=== PATIENT | female | born 1995 | race Caucasian/White ===

== ENCOUNTER 2019-03-01 16:33 | Inpatient (IN) ==
[2019-03-01] MEDS ORDERED: 0.9 % Sodium Chloride 1,000 ML IVC ONE ×3 (16:57→21:07)
[2019-03-01] MEDS ORDERED: *HR* Promethazine 25 MG/ML VIAL IVP ONE (17:07)
[2019-03-01] MEDS ORDERED: Ketorolac 15 MG/ML VIAL IVP ONE (17:19)
--- NOTE | 2019-03-01 17:20 | Emergency Department Note ---
Disposition Clinical Impression: Pyelonephritis, Dehydration Nausea and vomiting Qualifiers: Vomiting type: unspecified Vomiting Intractability: unspecified Qualified Code(s): R11.2 - Nausea with vomiting, unspecified Sepsis Qualifiers: Sepsis type: sepsis due to unspecified organism Qualified Code(s): A41.9 - Sepsis, unspecified organism Disposition: Admitted As Inpatient Condition: Fair Referrals: Imelda Mathis [employer] [Primary Care Provider] - Forms: ED Satisfaction Letter, Work/School Release Time of Disposition: 19:34 General Adult HPI - General Chief complaint: ED Abdominal Pain Stated complaint: Fever; RLQ pain Time Seen by Provider: 03/01/19 16:55 Nursing Notes Reviewed: Yes Vital Signs Reviewed: Yes - History of Present Illness Pain Scale: 4 - Related Data Home Medications Medication Instructions Recorded Confirmed Bupropion HCl [Wellbutrin Xl] 300 mg PO DAILY 03/01/19 03/01/19 Buspirone HCl [Buspar] 10 mg PO HS 03/01/19 03/01/19 Ibuprofen [Ibu] 800 mg PO PRN PRN 03/01/19 03/01/19 Medicinal Marijuana PRN 03/01/19 Norgestimate-Ethinyl Estradiol 1 each PO DAILY 03/01/19 03/01/19 [Travis-Linyah 28 Tablet] Omeprazole [PriLOSEC] 20 mg PO DAILY 03/01/19 03/01/19 Propranolol [Inderal] 10 mg PO BID PRN 03/01/19 03/01/19 Spironolactone 50 mg PO DAILY 03/01/19 03/01/19 Allergies Allergy/AdvReac Type Severity Reaction Status Date / Time Amoxicillin Allergy See Verified 03/01/19 16:37 Comments Dilating eye drops AdvReac Hives Uncoded 03/01/19 16:37 Course Vital Signs Temperature 98.1 F 03/01/19 16:36 Pulse Rate 117 03/01/19 16:36 Respiratory Rate 14 03/01/19 16:36 Blood Pressure 119/82 03/01/19 16:36 O2 Sat by Pulse Oximetry 100 03/01/19 16:36 Temperature 99.3 F 03/01/19 19:00 Pulse Rate 111 03/01/19 19:00 Respiratory Rate 18 03/01/19 19:00 Blood Pressure 99/73 03/01/19 19:00 O2 Sat by Pulse Oximetry 99 03/01/19 19:00 Oxygen Delivery Oxygen Delivery Room Air Medical Decision Making - MDM Narrative Medical decision making narrative: Abdomen/Pelvis CT 03/01/19 17:18 IMPRESSION: Mild right perinephric soft tissue stranding. No renal or ureteral calculi. Findings may be related to pyelonephritis in the correct clinical setting. Recommend correlation with urinalysis. D/ / 03/01/2019 18:10:45 Erica Clodu MD / yary Interpreting Provider: Erica Cloud MD [id number] hrs.: Patient does meet SIRS criteria with her UTI she may be septic. Were in a go ahead and start her on IV antibiotics second liter of fluids at a lactate and blood cultures and admission. She is in agreement with this plan. - Lab Data Result diagrams: 03/01/19 17:30 03/01/19 17:30 Lab Results 03/01/19 03/01/19 03/01/19 Range/Units 17:15 17:15 17:30 WBC 15.6 H (4.3-11.1) K/mcL RBC 4.72 (3.82-4.97) M/mcL Hgb 12.6 (11.5-15.4) g/dL Hct 39.1 (35.3-44.9) % MCV 82.8 L (83.0-100.0) fL MCH 26.7 L (28.0-33.3) pg MCHC 32.2 (31.6-35.5) g/dL RDW 13.5 (11.5-14.5) % Plt Count 318 (140-400) K/mcL MPV 10.6 (9.4-12.4) fL Immature Gran % 0.7 (0-4) % Seg Neutrophils % 79.9 % Lymphocytes % 8.4 % Monocytes % 10.6 % Eosinophils % 0.1 % Basophils % 0.3 % Neutrophils # 12.5 H (1.6-8.9) K/mcL Lymphocytes # 1.3 (0.6-4.6) K/mcL Monocytes # 1.7 H (0.0-1.3) K/mcL Eosinophils # 0.0 (0.0-0.6) K/mcL Basophils # 0.0 (0.0-0.2) K/mcL Sodium (136-145) mEq/L Potassium (3.5-5.1) mEq/L Chloride (98-107) mEq/L Carbon Dioxide (23-29) mEq/L BUN (6-20) mg/dL Creatinine (0.60-1.20) mg/dL Est GFR ( Amer) (> 60) Est GFR (Non-Af Amer) (> 60) BUN/Creatinine Ratio (6-26) Glucose (70-105) mg/dL Calculated Osmolality (280-300) Calcium (8.6-10.3) mg/dL Total Bilirubin (0.3-1.0) mg/dL Direct Bilirubin (0.0-0.2) mg/dL Indirect Bilirubin (0.0-1.2) mg/dL AST (13-39) Units/L ALT (7-52) Units/L Alkaline Phosphatase (34-104) Units/L Serum Total Protein (6.4-8.9) g/dL Albumin (3.5-5.7) g/dL Globulin (2.4-3.5) g/dL Albumin/Globulin Ratio (1.1-2.2) Lipase (11-82) Units/L Urine Color Yellow (Yellow) Urine Clarity Clear (Clear) Urine pH 6.0 (5.0-8.0) pH Units Ur Specific [place] > 1.030 H (1.010-1.025) Urine Protein 30 H (Neg-Trace) mg/dL Urine Glucose (UA) Normal (Normal) mg/dL Urine Ketones >=160 H (Negative) mg/dL Urine Blood Negative (Negative) Urine Nitrite Negative (Negative) Urine Bilirubin Small H (Negative) Urine Urobilinogen Normal (Normal) mg/dL Ur Leukocyte Esterase Small H (Negative) Urine Microscopic RBC 0-3 (0-3) per hpf Urine Microscopic WBC 5-15 H (0-3) per hpf Ur Squamous Epith Cells Few (None-Few) per lpf Urine Bacteria Moderate H (None-Few) per hpf Ur Culture Indicated? YES A (NO) Urine Test Negative (Negative) 03/01/19 Range/Units 17:30 WBC (4.3-11.1) K/mcL RBC (3.82-4.97) M/mcL Hgb (11.5-15.4) g/dL Hct (35.3-44.9) % MCV (83.0-100.0) fL MCH (28.0-33.3) pg MCHC (31.6-35.5) g/dL RDW (11.5-14.5) % Plt Count (140-400) K/mcL MPV (9.4-12.4) fL Immature Gran % (0-4) % Seg Neutrophils % % Lymphocytes % % Monocytes % % Eosinophils % % Basophils % % Neutrophils # (1.6-8.9) K/mcL Lymphocytes # (0.6-4.6) K/mcL Monocytes # (0.0-1.3) K/mcL Eosinophils # (0.0-0.6) K/mcL Basophils # (0.0-0.2) K/mcL Sodium 137 (136-145) mEq/L Potassium 3.5 (3.5-5.1) mEq/L Chloride 103 (98-107) mEq/L Carbon Dioxide 23 (23-29) mEq/L BUN 9 (6-20) mg/dL Creatinine 0.75 (0.60-1.20) mg/dL Est GFR ( Amer) > 60 (> 60) Est GFR (Non-Af Amer) > 60 (> 60) BUN/Creatinine Ratio 12 (6-26) Glucose 96 (70-105) mg/dL Calculated Osmolality 283 (280-300) Calcium 9.4 (8.6-10.3) mg/dL Total Bilirubin 0.4 (0.3-1.0) mg/dL Direct Bilirubin 0.1 (0.0-0.2) mg/dL Indirect Bilirubin 0.3 (0.0-1.2) mg/dL AST 9 L (13-39) Units/L ALT 8 (7-52) Units/L Alkaline Phosphatase 80 (34-104) Units/L Serum Total Protein 7.6 (6.4-8.9) g/dL Albumin 4.2 (3.5-5.7) g/dL Globulin 3.4 (2.4-3.5) g/dL Albumin/Globulin Ratio 1.2 (1.1-2.2) Lipase 10 L (11-82) Units/L Urine Color (Yellow) Urine Clarity (Clear) Urine pH (5.0-8.0) pH Units Ur Specific [place] (1.010-1.025) Urine Protein (Neg-Trace) mg/dL Urine Glucose (UA) (Normal) mg/dL Urine Ketones (Negative) mg/dL Urine Blood (Negative) Urine Nitrite (Negative) Urine Bilirubin (Negative) Urine Urobilinogen (Normal) mg/dL Ur Leukocyte Esterase (Negative) Urine Microscopic RBC (0-3) per hpf Urine Microscopic WBC (0-3) per hpf Ur Squamous Epith Cells (None-Few) per lpf Urine Bacteria (None-Few) per hpf Ur Culture Indicated? (NO) Urine Test (Negative) Attestation Statement - Attestation Attestation: This documentation is done with the assistance of Dragon dictation. Despite efforts made to ensure accuracy, there may be inaccuracies in ocular care technician or spelling and typographical errors. I examined this patient and my medical decision-making was reviewed with the Resident Physician. I agree with the documented findings, disposition and treatment plan as described except to the extent set forth below. Patient seen and evaluated by Dr. Jae ochoa myself, I agree with her evaluation and management plan, I supervised the care the patient's stay. Patient presents today with abdominal flank pain. Subjective fevers and none here. She has been taken acetaminophen and ibuprofen help with that. Had a recent UTI was started on Bactrim but has not been out keep her medications down. We will see if we can get her feeling better start some fluids and something for nausea and pain. Lab work check a urinalysis and reassess. She also get a CT the abdomen to rule out stone or intra-abdominal pathology.
--- NOTE | 2019-03-01 17:33 | Emergency Department Note ---
Disposition Clinical Impression: Pyelonephritis, Dehydration Nausea and vomiting Qualifiers: Vomiting type: unspecified Vomiting Intractability: unspecified Qualified Code(s): R11.2 - Nausea with vomiting, unspecified Sepsis Qualifiers: Sepsis type: sepsis due to unspecified organism Qualified Code(s): A41.9 - Sepsis, unspecified organism Disposition: Admitted As Inpatient Condition: Fair Referrals: Imelda Mathis [employer] [Primary Care Provider] - Forms: ED Satisfaction Letter, Work/School Release Time of Disposition: 18:30 Abdominal Pain HPI - General Chief Complaint: ED Abdominal Pain Stated Complaint: Fever; RLQ pain Time Seen by Provider: 03/01/19 16:55 Source: patient Mode of arrival: private vehicle Limitations: no limitations Nursing Notes Reviewed: Yes Vital Signs Reviewed: Yes - History of Present Illness HPI Narrative: Patient is a 23-year-old female with no past medical history presenting with a chief complaint of right flank pain and fevers. The patient states for the past 4 days, she complains of constant right flank pain and fevers greater than 103 degrees Fahrenheit taken by a forehead thermometer. She has been taking ib uprofen and Tylenol without much improvement. She also complains of decreased urination and dark urine. She followed up at [place] urgent care yesterday. She was diagnosed with a urinary tract infection. She states Toradol helped with her pain. She was discharged home with Bactrim. For the past 3-4 days she also complains of nausea and vomiting and states she is unable to keep anything down. She states Zofran does not help. She states today she has continued pain. She last took Tylenol around noon. She was afebrile and she presented here. Patient does state she has a medical marijuana prescription for borderline personality disorder and anxiety/PTSD. Pain Scale: 4 - Related Data Allergies Allergy/AdvReac Type Severity Reaction Status Date / Time Amoxicillin Allergy See Verified 03/01/19 16:37 Comments Dilating eye drops AdvReac Hives Uncoded 03/01/19 16:37 All systems ED: reviewed and negative except as stated. Review of Systems: As Per HPI Constitutional: Reports: fever, chills Cardiovascular: Denies: chest pain, palpitations Respiratory: Denies: dyspnea Gastrointestinal: Reports: abdominal pain, nausea, vomiting. Denies: diarrhea, hematemesis, hematochezia Genitourinary: Reports: dysuria. Denies: hematuria Neurological: Denies: headache, weakness Abdominal Pain PMH - Past Medical History Medical history: Reports: non-contributory Female Surgical History: Reports: Adenoidectomy, Tonsillectomy Psychiatric history: Reports: anxiety, depression, PTSD, other - Social History Smoking status: Never smoker Alcohol use: Reports: occasionally Drug use: Reports: none Physical Exam - General Limitations: no limitations General appearance: alert, in no apparent distress - Head Head exam: atraumatic, normocephalic - Eye Eye exam: Present: normal appearance, EOMI - ENT ENT exam: normal exam, normal oropharynx - Neck Neck exam: Present: normal inspection, trachea midline - Chest Chest inspection: Present: normal inspection, symmetric chest wall rise - Respiratory Respiratory exam: Present: normal lung sounds bilaterally. Absent: respiratory distress, wheezes - Cardiovascular Cardiovascular exam: Present: normal rhythm, tachycardia, normal heart sounds - Abdominal Exam Abdominal exam: Present: soft, other (right lower quadrant and right flank tenderness to palpation without guarding or rebound) - Extremities Exam Extremities exam: Present: normal capillary refill. Absent: pedal edema - Back Exam Back exam: Present: CVA tenderness (R) - Neurological Exam Neurological exam: Present: alert, oriented X3 - Psychiatric Psychiatric exam: Present: normal affect, normal mood - Skin Skin exam: Present: warm, dry. Absent: diaphoresis, pallor Course Vital Signs Temperature 98.1 F 03/01/19 16:36 Pulse Rate 117 03/01/19 16:36 Respiratory Rate 14 03/01/19 16:36 Blood Pressure 119/82 03/01/19 16:36 O2 Sat by Pulse Oximetry 100 03/01/19 16:36 Temperature 98.1 F 03/01/19 17:17 Pulse Rate 117 03/01/19 17:17 Respiratory Rate 14 03/01/19 17:17 Blood Pressure 119/82 03/01/19 17:17 O2 Sat by Pulse Oximetry 100 03/01/19 17:17 Oxygen Delivery Oxygen Delivery Room Air Abdominal Pain - MDM Narrative Medical decision making narrative: Patient has sinus tachycardia, is afebrile. She was recently diagnosed with ur inary tract infection and started on bactrim since yesterday. There is a concern for pyelonephritis versus septic stone. We will obtain CBC, BMP, hepatic panel, lipase. We will repeat urinalysis. We will obtain CT abdomen and pelvis without contrast to further evaluate. We will give her Toradol and Phenergan for pain and nausea. 1L IVFs has been ordered. 18:20 CT abdomen and pelvis is concerning for pyelonephritis. We will give her a dose of IV Rocephin and second liter of normal saline. She has leukocytosis and remains tachycardic. We will start second liter of IV fluids. She will receive IV Rocephin. Lactate and blood cultures will be obtained. She has sepsis secondary to pyelonephritis. She will be admitted for further management. - Medical Records Medical records reviewed: Yes I reviewed the patient's medical records. - Lab Data Lab results reviewed: Yes I reviewed the patient's lab results. Result diagrams: 03/01/19 17:30 03/01/19 17:30 Lab Results 03/01/19 03/01/19 03/01/19 Range/Units 17:15 17:15 17:30 WBC 15.6 H (4.3-11.1) K/mcL RBC 4.72 (3.82-4.97) M/mcL Hgb 12.6 (11.5-15.4) g/dL Hct 39.1 (35.3-44.9) % MCV 82.8 L (83.0-100.0) fL MCH 26.7 L (28.0-33.3) pg MCHC 32.2 (31.6-35.5) g/dL RDW 13.5 (11.5-14.5) % Plt Count 318 (140-400) K/mcL MPV 10.6 (9.4-12.4) fL Immature Gran % 0.7 (0-4) % Seg Neutrophils % 79.9 % Lymphocytes % 8.4 % Monocytes % 10.6 % Eosinophils % 0.1 % Basophils % 0.3 % Neutrophils # 12.5 H (1.6-8.9) K/mcL Lymphocytes # 1.3 (0.6-4.6) K/mcL Monocytes # 1.7 H (0.0-1.3) K/mcL Eosinophils # 0.0 (0.0-0.6) K/mcL Basophils # 0.0 (0.0-0.2) K/mcL Sodium (136-145) mEq/L Potassium (3.5-5.1) mEq/L Chloride (98-107) mEq/L Carbon Dioxide (23-29) mEq/L BUN (6-20) mg/dL Creatinine (0.60-1.20) mg/dL Est GFR ( Amer) (> 60) Est GFR (Non-Af Amer) (> 60) BUN/Creatinine Ratio (6-26) Glucose (70-105) mg/dL Calculated Osmolality (280-300) Calcium (8.6-10.3) mg/dL Total Bilirubin (0.3-1.0) mg/dL Direct Bilirubin (0.0-0.2) mg/dL Indirect Bilirubin (0.0-1.2) mg/dL AST (13-39) Units/L ALT (7-52) Units/L Alkaline Phosphatase (34-104) Units/L Serum Total Protein (6.4-8.9) g/dL Albumin (3.5-5.7) g/dL Globulin (2.4-3.5) g/dL Albumin/Globulin Ratio (1.1-2.2) Lipase (11-82) Units/L Urine Color Yellow (Yellow) Urine Clarity Clear (Clear) Urine pH 6.0 (5.0-8.0) pH Units Ur Specific [place] > 1.030 H (1.010-1.025) Urine Protein 30 H (Neg-Trace) mg/dL Urine Glucose (UA) Normal (Normal) mg/dL Urine Ketones >=160 H (Negative) mg/dL Urine Blood Negative (Negative) Urine Nitrite Negative (Negative) Urine Bilirubin Small H (Negative) Urine Urobilinogen Normal (Normal) mg/dL Ur Leukocyte Esterase Small H (Negative) Urine Microscopic RBC 0-3 (0-3) per hpf Urine Microscopic WBC 5-15 H (0-3) per hpf Ur Squamous Epith Cells Few (None-Few) per lpf Urine Bacteria Moderate H (None-Few) per hpf Ur Culture Indicated? YES A (NO) Urine Test Negative (Negative) 03/01/19 Range/Units 17:30 WBC (4.3-11.1) K/mcL RBC (3.82-4.97) M/mcL Hgb (11.5-15.4) g/dL Hct (35.3-44.9) % MCV (83.0-100.0) fL MCH (28.0-33.3) pg MCHC (31.6-35.5) g/dL RDW (11.5-14.5) % Plt Count (140-400) K/mcL MPV (9.4-12.4) fL Immature Gran % (0-4) % Seg Neutrophils % % Lymphocytes % % Monocytes % % Eosinophils % % Basophils % % Neutrophils # (1.6-8.9) K/mcL Lymphocytes # (0.6-4.6) K/mcL Monocytes # (0.0-1.3) K/mcL Eosinophils # (0.0-0.6) K/mcL Basophils # (0.0-0.2) K/mcL Sodium 137 (136-145) mEq/L Potassium 3.5 (3.5-5.1) mEq/L Chloride 103 (98-107) mEq/L Carbon Dioxide 23 (23-29) mEq/L BUN 9 (6-20) mg/dL Creatinine 0.75 (0.60-1.20) mg/dL Est GFR ( Amer) > 60 (> 60) Est GFR (Non-Af Amer) > 60 (> 60) BUN/Creatinine Ratio 12 (6-26) Glucose 96 (70-105) mg/dL Calculated Osmolality 283 (280-300) Calcium 9.4 (8.6-10.3) mg/dL Total Bilirubin 0.4 (0.3-1.0) mg/dL Direct Bilirubin 0.1 (0.0-0.2) mg/dL Indirect Bilirubin 0.3 (0.0-1.2) mg/dL AST 9 L (13-39) Units/L ALT 8 (7-52) Units/L Alkaline Phosphatase 80 (34-104) Units/L Serum Total Protein 7.6 (6.4-8.9) g/dL Albumin 4.2 (3.5-5.7) g/dL Globulin 3.4 (2.4-3.5) g/dL Albumin/Globulin Ratio 1.2 (1.1-2.2) Lipase 10 L (11-82) Units/L Urine Color (Yellow) Urine Clarity (Clear) Urine pH (5.0-8.0) pH Units Ur Specific [place] (1.010-1.025) Urine Protein (Neg-Trace) mg/dL Urine Glucose (UA) (Normal) mg/dL Urine Ketones (Negative) mg/dL Urine Blood (Negative) Urine Nitrite (Negative) Urine Bilirubin (Negative) Urine Urobilinogen (Normal) mg/dL Ur Leukocyte Esterase (Negative) Urine Microscopic RBC (0-3) per hpf Urine Microscopic WBC (0-3) per hpf Ur Squamous Epith Cells (None-Few) per lpf Urine Bacteria (None-Few) per hpf Ur Culture Indicated? (NO) Urine Test (Negative) - Radiology Data Radiology results reviewed: Yes I reviewed the patient's radiology results. Abdomen/Pelvis CT 03/01/19 17:18 IMPRESSION: Mild right perinephric soft tissue stranding. No renal or ureteral calculi. Findings may be related to pyelonephritis in the correct clinical setting. Recommend correlation with urinalysis. D/ / 03/01/2019 18:10:45 Erica Cloud MD / yary Interpreting Provider: Erica Cloud MD
[2019-03-01 18:01] LABS: Color,Urine Yellow (Yellow)
[2019-03-01 18:02] LABS: Bilirubin,Urine Small (Negative); Blood,Urine Negative (Negative); Clarity,Urine Clear (Clear); Glucose,Urine (UA) Normal (Normal); Ketones,Urine >=160 mg/dL (Negative); Leukocyte Esterase,Urine Small (Negative); Nitrite,Urine Negative (Negative); Protein,Urine 30 mg/dL (Neg-Trace); Specific Gravity,Urine > 1.030 (1.010-1.025); Urobilinogen,Urine Normal (Normal)
[2019-03-01 18:03] LABS: Squamous Epithelial Cell,Urine Few per lpf (None-Few)
[2019-03-01 18:04] LABS: Bacteria,Urine Moderate per hpf (None-Few); RBC,Urine 0-3 per hpf (0-3)
[2019-03-01 18:14] LABS: Alanine Aminotransferase 8 Units/L (7-52); Albumin 4.2 g/dL (3.5-5.7); Albumin/Globulin Ratio 1.2 (1.1-2.2); Alkaline Phosphatase 80 Units/L (34-104); Aspartate Amino Transferase 9 Units/L (13-39); Bilirubin,Direct 0.1 mg/dL (0.0-0.2); Bilirubin,Indirect 0.3 mg/dL (0.0-1.2); Bilirubin,Total 0.4 mg/dL (0.3-1.0); Globulin 3.4 g/dL (2.4-3.5); Lipase 10 Units/L (11-82); Total Protein 7.6 g/dL (6.4-8.9)
[2019-03-01 18:21] LABS: Basophils % 0.3 %; Eosinophils % 0.1 %; Hematocrit 39.1 % (35.3-44.9); Hemoglobin 12.6 g/dL (11.5-15.4); Immature Granulocytes % 0.7 % (0-4); Lymphocytes # 1.3 K/mcL (0.6-4.6); Lymphocytes % 8.4 %; Mean Corpuscular HGB Conc 32.2 g/dL (31.6-35.5); Mean Corpuscular Hemoglobin 26.7 pg (28.0-33.3); Mean Corpuscular Volume 82.8 fL (83.0-100.0); Mean Platelet Volume 10.6 fL (9.4-12.4); Monocytes # 1.7 K/mcL (0.0-1.3); Monocytes % 10.6 %; Neutrophils # 12.5 K/mcL (1.6-8.9); Platelet Count 318 K/mcL (140-400); Red Blood Count 4.72 M/mcL (3.82-4.97); Red Cell Distribution Width 13.5 % (11.5-14.5); Segmented Neutrophils % 79.9 %
[2019-03-01] MEDS ORDERED: cefTRIAXone 1,000 MG in Water for inj. (sterile) 20 ML 10 ML IVP ONE (18:23)
[2019-03-01 18:30] LABS: BUN/Creatinine Ratio 12 (6-26); Blood Urea Nitrogen 9 mg/dL (6-20); Calcium 9.4 mg/dL (8.6-10.3); Carbon Dioxide 23 mEq/L (23-29); Chloride 103 mEq/L (98-107); Glucose 96 mg/dL (70-105); Osmolality,Calculated 283 (280-300); Potassium 3.5 mEq/L (3.5-5.1); Sodium 137 mEq/L (136-145); eGFR For Non-African Americans > 60 (> 60)
[2019-03-01] MEDS ORDERED: Acetaminophen 325 MG TABLET PO ONE (21:06)
--- NOTE | 2019-03-01 21:11 | Internal Med History&Physical ---
<Aguila Chung S - Last Filed: 03/01/19 22:32> Date of Encounter: 03/01/19 Time of Encounter: 21:32 Internal Medicine - H&P: HPI Chief complaint: uti Admitted From: Home Plans for Post Hospital Care: Home History of present illness: Ms. Mcginnis is a 23 year old female with a PMH of PTSD, borderline personality d/o, anxiety and depression. She is coming in to the ER from home with the chief complaint of persistent UTI. Two weeks ago she was given bactrim for a UTI. She continued to have nausea, vomiting, and fevers with a t max of 103 degrees. She went to another walk in clinic and was given macrobid and zofran. She then became unable to keep anything down and threw up no matter what she ate or dran k. She has some abdominal pain in the LLQ/RLQ but denies any pain with urination. She does have increased frequency of urination. Denies hematuria. She also c/o dark urine that smells real bad. In the ER she was found to have CT evidence of pyelonephritis. She was given IV rocephin. The pt met criteria for sepsis and was given appropriate fluid resuscitation. She had urine and blood cx ordered. She will be admitted for further management. Past Med Surg Social Fam HX - Past Medical History Medical history: non-contributory Psychiatric history: anxiety, depression, PTSD, other - Social History Smoking Status: Never smoker Smokeless Tobacco Status: No Alcohol use: occasionally Drug use: none - Family History Maternal Grandmother Adopted: No Race: Hx Family Endocrine Disorder: Yes (T2DM) Father Adopted: No Race: Hx Family Endocrine Disorder: Yes Internal Medicine - H&P: Meds Bupropion HCl [Wellbutrin Xl] 300 mg PO DAILY 03/01/19 [History] Buspirone HCl [Buspar] 10 mg PO HS 03/01/19 [History] Ibuprofen [Ibu] 800 mg PO PRN PRN 03/01/19 [History] Medicinal Marijuana PRN 03/01/19 [History] Norgestimate-Ethinyl Estradiol [[place] 28 Tablet] 1 each PO DAILY 03/01/19 [History] Omeprazole [PriLOSEC] 20 mg PO DAILY 03/01/19 [History] Propranolol [Inderal] 10 mg PO BID PRN 03/01/19 [History] Spironolactone 50 mg PO DAILY 03/01/19 [History] Allergy/AdvReac Type Severity Reaction Status Date / Time Amoxicillin Allergy See Verified 03/01/19 16:37 Comments Dilating eye drops AdvReac Hives Uncoded 03/01/19 16:37 All Systems PM: A 10-system review of systems was performed and is negative for pertinent findings except as documented above in the HPI. - Constitutional Constitutional: anorexia, chills, excessive sweating, fever(s), malaise - EENT Eyes: no blurry vision, no change in vision Ears: no tinnitus Nose, mouth and throat: no bleeding gums, no epistaxis - Cardiovascular Cardiovascular ROS IM: no chest pain, no dyspnea, no dyspnea on exertion - Respiratory Respiratory: no cough, no dyspnea, no dyspnea on exertion - Gastrointestinal Gastrointestinal: abdominal pain, nausea, vomiting, no diarrhea - Genitourinary Genitourinary: flank pain, urinary frequency, urinary urgency, no dysuria, no hematuria - Musculoskeletal Musculoskeletal ROS IM: back pain, no stiffness, no tingling - Integumentary Integumentary IM: no rash, no skin ulcer, no unusual bruising - Neurological Neurological ROS: weakness, no dizziness, no numbness, no tremor(s) - Psychiatric Psychiatric: anxiety, depression, mood swings - Hematologic/Lymphatic Hematologic/Lymphatic: no easy bleeding, no easy bruising - Constitutional Vitals: Temp Pulse Resp BP Pulse Ox 103.2 F H 124 18 117/82 97 03/01/19 21:05 03/01/19 21:05 03/01/19 21:05 03/01/19 21:05 03/01/19 21:05 General appearance: Present: cooperative, mild distress, A&O X 3, obese, answers questions appropriately Exam: general - mildly anxious, obese female laying in bed, cooperative, aox3 heent - ncat, dry MM, no scleral icterus neck - no jvd, supple cardio - tacycardia, s1s2, cta no mrg lungs - ctab no wheeze/rhonchi/rales, not in respiraory distress abd - mild TTP in LLQ/RLQ, no rebound, involtuntary guarding present, no peritoneal signs back - (+) CVA tenderness right side extremities - moves all extremities equally and without difficulty, no pitting edema bilaterally skin - warm, dry, intact neuro - no fnd, sensation and strength intact psych - mildly anxious Internal Med - H&P Results - Labs CBC & Chem 7: 03/01/19 17:30 03/01/19 17:30 Labs: Short CBC 03/01/19 Range/Units 17:30 WBC 15.6 H (4.3-11.1) K/mcL Hgb 12.6 (11.5-15.4) g/dL Hct 39.1 (35.3-44.9) % Plt Count 318 (140-400) K/mcL Neutrophils # 12.5 H (1.6-8.9) K/mcL BMP 03/01/19 17:30 Sodium 137 Potassium 3.5 Chloride 103 Carbon Dioxide 23 BUN 9 Creatinine 0.75 Glucose 96 Calcium 9.4 Liver Function 03/01/19 Range/Units 17:30 Total Bilirubin 0.4 (0.3-1.0) mg/dL Direct Bilirubin 0.1 (0.0-0.2) mg/dL AST 9 L (13-39) Units/L ALT 8 (7-52) Units/L Alkaline Phosphatase 80 (34-104) Units/L Albumin 4.2 (3.5-5.7) g/dL Urine 03/01/19 Range/Units 17:15 Urine Color Yellow (Yellow) Urine Clarity Clear (Clear) Urine pH 6.0 (5.0-8.0) pH Units Ur Specific [place] > 1.030 H (1.010-1.025) Urine Protein 30 H (Neg-Trace) mg/dL Urine Glucose (UA) Normal (Normal) mg/dL - Impressions ITS Impressions Abdomen/Pelvis CT 03/01/19 17:18 IMPRESSION: Mild right perinephric soft tissue stranding. No renal or ureteral calculi. Findings may be related to pyelonephritis in the correct clinical setting. Recommend correlation with urinalysis. D/ / 03/01/2019 18:10:45 Erica Cloud MD / yary Interpreting Provider: Erica Cloud MD - Assessment and Plan (1) Sepsis Current Visit: Yes Status: Acute Assessment and plan: Sepsis likely secondary to acute pyelonephritis - pt failed outpatient tx with bactrim (2 wks ago) followed by bethanybid - has hx of recurrent UTI Meets SIRS criteria for HR, WBC, temperature; source of infxn pyelonephritis UA (+) for leukocyte esterase and WBC, negative for nitrites CT abd/pelvis from admission: - Mild right perinephric soft tissue stranding. No renal or ureteral calculi. - Findings may be related to pyelonephritis in the correct clinical setting. Plan: - blood cx pending - urine cx pending - continue MIVF after fluid boluses completed at 125cc/hr 0.9% NS - continue rocephin day 1 - pain control with ketorolac prn q6hr - acetaminophen q6hr prn fever - phenergan prn nausea - FEN: regular diet, advance diet as tolerated - DVT prophylaxis: sq heparin - dispo: inpatient IV abx Qualifiers: Sepsis type: sepsis due to unspecified organism Qualified Code(s): A41.9 - Sepsis, unspecified organism (2) DVT prophylaxis Current Visit: Yes Status: Acute Assessment and plan: sq heparin (3) Obesity (BMI 30.0-34.9) Current Visit: No Status: Chronic Assessment and plan: bmi 34.7, chronic. counseled. (4) GERD (gastroesophageal reflux disease) Current Visit: No Status: Chronic Assessment and plan: con't home rx when reconciled. chronic. Qualifiers: Esophagitis presence: without esophagitis Qualified Code(s): K21.9 - Gastro-esophageal reflux disease without esophagitis (5) Pyelonephritis Current Visit: Yes Status: Acute Assessment and plan: See plan as above for sepsis. (6) Nausea and vomiting Current Visit: Yes Status: Acute Assessment and plan: phenergan prn Qualifiers: Vomiting type: unspecified Vomiting Intractability: unspecified Qualified Code(s): R11.2 - Nausea with vomiting, unspecified (7) Dehydration Current Visit: Yes Status: Acute Assessment and plan: Secondary to vomiting and poor PO intake. Continue IVF hydration as above. (8) Leukocytosis Current Visit: Yes Status: Acute Assessment and plan: White count 15.4 on admission, likely secondary to pyelonephritis. Qualifiers: Leukocytosis type: unspecified Qualified Code(s): D72.829 - Elevated white blood cell count, unspecified (9) Tachycardia Current Visit: Yes Status: Acute Assessment and plan: In the setting of sepsis, likely secondary to infxn. Will continue to monitor. (10) Mood disorder Current Visit: No Status: Chronic Assessment and plan: Pt reports anxiety, depression, PTSD and borderine personality disorder. Will continue home rx when reconciled. - Time Spent With Patient Total time spent is greater than 50% in coordination of care (as documented) at patient's floor/unit and/or counseling patient: 25 - 35 minutes <Abelino Dinh - Last Filed: 03/02/19 08:15> Date of Encounter: 03/02/19 Internal Medicine - H&P: HPI History of present illness: Ms. Mcginnis is a 23 year old female All Systems PM: A 10-system review of systems was performed and is negative for pertinent findings except as documented above in the HPI. - Constitutional Vitals: Temp Pulse Resp BP Pulse Ox 98.0 F 96 17 93/67 98 03/02/19 04:23 03/02/19 04:23 03/02/19 04:23 03/02/19 04:23 03/02/19 04:23 Internal Med - H&P Results - Labs CBC & Chem 7: 03/01/19 17:30 03/01/19 17:30 Labs: Short CBC 03/01/19 Range/Units 17:30 WBC 15.6 H (4.3-11.1) K/mcL Hgb 12.6 (11.5-15.4) g/dL Hct 39.1 (35.3-44.9) % Plt Count 318 (140-400) K/mcL Neutrophils # 12.5 H (1.6-8.9) K/mcL BMP 03/01/19 17:30 Sodium 137 Potassium 3.5 Chloride 103 Carbon Dioxide 23 BUN 9 Creatinine 0.75 Glucose 96 Calcium 9.4 Liver Function 03/01/19 Range/Units 17:30 Total Bilirubin 0.4 (0.3-1.0) mg/dL Direct Bilirubin 0.1 (0.0-0.2) mg/dL AST 9 L (13-39) Units/L ALT 8 (7-52) Units/L Alkaline Phosphatase 80 (34-104) Units/L Albumin 4.2 (3.5-5.7) g/dL Urine 03/01/19 Range/Units 17:15 Urine Color Yellow (Yellow) Urine Clarity Clear (Clear) Urine pH 6.0 (5.0-8.0) pH Units Ur Specific [place] > 1.030 H (1.010-1.025) Urine Protein 30 H (Neg-Trace) mg/dL Urine Glucose (UA) Normal (Normal) mg/dL - Impressions ITS Impressions Abdomen/Pelvis CT 03/01/19 17:18 IMPRESSION: Mild right perinephric soft tissue stranding. No renal or ureteral calculi. Findings may be related to pyelonephritis in the correct clinical setting. Recommend correlation with urinalysis. D/ / 03/01/2019 18:10:45 Erica Cloud MD / yary Interpreting Provider: Erica Cloud MD - Assessment and Plan (1) Pyelonephritis Current Visit: Yes Status: Acute (2) Nausea and vomiting Current Visit: Yes Status: Acute Qualifiers: Vomiting type: unspecified Vomiting Intractability: unspecified Qualified Code(s): R11.2 - Nausea with vomiting, unspecified (3) Dehydration Current Visit: Yes Status: Acute (4) Sepsis Current Visit: Yes Status: Acute Qualifiers: Sepsis type: sepsis due to unspecified organism Qualified Code(s): A41.9 - Sepsis, unspecified organism (5) DVT prophylaxis Current Visit: Yes Status: Acute (6) Obesity (BMI 30.0-34.9) Current Visit: No Status: Chronic (7) GERD (gastroesophageal reflux disease) Current Visit: No Status: Chronic Qualifiers: Esophagitis presence: without esophagitis Qualified Code(s): K21.9 - Eriberto ro-esophageal reflux disease without esophagitis (8) Leukocytosis Current Visit: Yes Status: Acute Qualifiers: Leukocytosis type: unspecified Qualified Code(s): D72.829 - Elevated white blood cell count, unspecified (9) Tachycardia Current Visit: Yes Status: Acute (10) Mood disorder Current Visit: No Status: Chronic - Time Spent With Patient Total time spent is greater than 50% in coordination of care (as documented) at patient's floor/unit and/or counseling patient: - Attending Attestation I saw and evaluated the patient. I reviewed the residents note, performed my o wn physical examination and agree with findings and plan as documented in the residents note. Patient seen and examined on 03/01/19. Patient presented with left sided abdominal pain, found to have pyelonephritis. Patient's pain has improved with IV fluids and pain medication. We will continue IV antibiotics and continue to monitor.
[2019-03-01] MEDS ORDERED: Naloxone 0.4 MG/ML INJ IVP PRN (21:30)
[2019-03-01] MEDS ORDERED: 0.9 % Sodium Chloride 1,000 ML IVC SCH (21:30)
[2019-03-01 21:54] LABS: Magnesium 2.1 mg/dL (1.6-2.6)
[2019-03-01] MEDS: Acetaminophen 325 MG TABLET PO PRN (23:30)
[2019-03-01] MEDS: 0.9 % Sodium Chloride 1,000 ML IVC SCH (23:30)
[2019-03-01] MEDS: *HR* Heparin 5,000 UNIT/ML VIAL SQ SCH (23:31)
[2019-03-02] MEDS: Ketorolac 30 MG/ML VIAL IVP PRN ×3 (03:55→18:37)
[2019-03-02] MEDS: *HR* Heparin 5,000 UNIT/ML VIAL SQ SCH ×2 (05:43→15:56)
[2019-03-02] MEDS ORDERED: cefTRIAXone 2,000 MG in Water for inj. (sterile) 20 ML 20 ML IVP SCH (08:00)
[2019-03-02] MEDS: cefTRIAXone 1,000 MG in Water for inj. (sterile) 20 ML 10 ML IVP SCH (08:25)
[2019-03-02] MEDS: Acetaminophen 325 MG TABLET PO PRN ×2 (08:26→16:01)
[2019-03-02] MEDS: *HR* Promethazine 25 MG/ML VIAL IVP PRN (08:26)
[2019-03-02] MEDS: 0.9 % Sodium Chloride 1,000 ML IVC SCH ×3 (08:30→16:06)
[2019-03-02 10:35] LABS: Mean Corpuscular HGB Conc 32.1 g/dL (31.6-35.5); Mean Corpuscular Hemoglobin 26.4 pg (28.0-33.3); Mean Corpuscular Volume 82.3 fL (83.0-100.0); Mean Platelet Volume 10.8 fL (9.4-12.4); Platelet Count 257 K/mcL (140-400); Red Blood Count 4.01 M/mcL (3.82-4.97); Red Cell Distribution Width 13.6 % (11.5-14.5)
[2019-03-02 10:40] LABS: BUN/Creatinine Ratio 10 (6-26); Blood Urea Nitrogen 6 mg/dL (6-20); Calcium 8.2 mg/dL (8.6-10.3); Carbon Dioxide 22 mEq/L (23-29); Chloride 108 mEq/L (98-107); Glucose 107 mg/dL (70-105); Osmolality,Calculated 282 (280-300); Potassium 3.4 mEq/L (3.5-5.1); Sodium 137 mEq/L (136-145); eGFR For Non-African Americans > 60 (> 60)
[2019-03-02 11:11] LABS: Hemoglobin 10.6 g/dL (11.5-15.4)
--- NOTE | 2019-03-02 15:27 | Internal Med Progress Note ---
Hospitalist Progress Note - Encounter Date of Encounter: 03/02/19 Time of Encounter: 15:25 - Subjective Interval History: Seen and examined at bedside. Patient is new to me, information obtained from chart review and patient report. Still says she does not feel 100% and not back to baseline but overall improved. She does report some right-sided flank pain but this is improved as well. Symptoms dysuria. No fevers since arrival to the floor. - Exam Vitals: Temp Pulse Resp BP Pulse Ox 98.8 F 93 20 118/79 99 03/02/19 11:16 03/02/19 11:16 03/02/19 11:16 03/02/19 11:16 03/02/19 11:16 Exam: general - mildly anxious, obese female laying in bed, cooperative, aox3 heent - ncat, dry MM, no scleral icterus neck - no jvd, supple cardio - tacycardia, s1s2, cta no mrg lungs - ctab no wheeze/rhonchi/rales, not in respiraory distress abd - mild TTP in LLQ/RLQ, no rebound, involtuntary guarding present, no peritoneal signs back - (+) CVA tenderness right side extremities - moves all extremities equally and without difficulty, no pitting edema bilaterally skin - warm, dry, intact neuro - no fnd, sensation and strength intact psych - mildly anxious - Assessment and Plan (1) Pyelonephritis Current Visit: Yes Status: Acute Assessment and Plan: presented with right flank pain and nausea/vomiting. ABD CT concerning for pyelonephritis. UA consistent with UTI. Failed outpatient tx with bactrim (2 wks ago) followed by macrobid. Hx of recurrent UTI. Cont IV ceftriaxone for now. Follow urine culture and narrow accordingly. (2) Nausea and vomiting Current Visit: Yes Status: Acute Assessment and Plan: Most likely secondary to pyelonephritis. Has when necessary antiemetics. Improved on 03/02 exam (3) Dehydration Current Visit: Yes Status: Acute Assessment and Plan: Secondary to vomiting and poor PO intake. Continue IVF hydration as above. (4) Sepsis Current Visit: Yes Status: Acute Assessment and Plan: likely secondary to acute pyelonephritis. Meest sepsis criteria with HR, WBC, temperature; source of infxn pyelonephritis. UA (+) for leukocyte esterase and WBC, negative for nitrites. CT abd/pelvis from admission showed Mild right perinephric soft tissue stranding concerning for pyelonephritis. Cont IV fluids and IV ceftriaxone. Blood and urine cultures pending. Appears to be improving, afebrile no further tachycardia and WBC improving. (5) DVT prophylaxis Current Visit: Yes Status: Acute (6) Obesity (BMI 30.0-34.9) Current Visit: No Status: Chronic (7) GERD (gastroesophageal reflux disease) Current Visit: No Status: Chronic (8) Leukocytosis Current Visit: Yes Status: Acute (9) Tachycardia Current Visit: Yes Status: Acute (10) Mood disorder Current Visit: No Status: Chronic - Time Spent with Patient Total time spent is greater than 50% in coordination of care (as documented) at patient's floor/unit and/or counseling patient: Internal Medicine: Result - Labs CBC & Chem 7: 03/02/19 09:30 03/02/19 09:30 Labs: Short CBC 03/01/19 03/02/19 Range/Units 17:30 09:30 WBC 15.6 H 12.2 H (4.3-11.1) K/mcL Hgb 12.6 10.6 L D (11.5-15.4) g/dL Hct 39.1 33.0 L (35.3-44.9) % Plt Count 318 257 (140-400) K/mcL Neutrophils # 12.5 H (1.6-8.9) K/mcL BMP 03/01/19 03/02/19 17:30 09:30 Sodium 137 137 Potassium 3.5 3.4 L Chloride 103 108 H Carbon Dioxide 23 22 L BUN 9 6 Creatinine 0.75 0.58 L Glucose 96 107 H Calcium 9.4 8.2 L Liver Function 03/01/19 Range/Units 17:30 Total Bilirubin 0.4 (0.3-1.0) mg/dL Direct Bilirubin 0.1 (0.0-0.2) mg/dL AST 9 L (13-39) Units/L ALT 8 (7-52) Units/L Alkaline Phosphatase 80 (34-104) Units/L Albumin 4.2 (3.5-5.7) g/dL Urine 03/01/19 Range/Units 17:15 Urine Color Yellow (Yellow) Urine Clarity Clear (Clear) Urine pH 6.0 (5.0-8.0) pH Units Ur Specific [place] > 1.030 H (1.010-1.025) Urine Protein 30 H (Neg-Trace) mg/dL Urine Glucose (UA) Normal (Normal) mg/dL - Impressions Impressions Abdomen/Pelvis CT 03/01/19 17:18 IMPRESSION: Mild right perinephric soft tissue stranding. No renal or ureteral calculi. Findings may be related to pyelonephritis in the correct clinical setting. Recommend correlation with urinalysis. D/ / 03/01/2019 18:10:45 Erica Cloud MD / yary Interpreting Provider: Erica Cloud MD Consult Discharge Plan - Plan Referrals: Imelda Mathis CNP [Primary Care Provider] - (2) Nausea and vomiting Qualifiers: Vomiting type: unspecified Vomiting Intractability: unspecified Qualified Code(s): R11.2 - Nausea with vomiting, unspecified (4) Sepsis Qualifiers: Sepsis type: sepsis due to unspecified organism Qualified Code(s): A41.9 - Sepsis, unspecified organism (7) GERD (gastroesophageal reflux disease) Qualifiers: Esophagitis presence: without esophagitis Qualified Code(s): K21.9 - Gastro- esophageal reflux disease without esophagitis (8) Leukocytosis Qualifiers: Leukocytosis type: unspecified Qualified Code(s): D72.829 - Elevated white blood cell count, unspecified
[2019-03-02] MEDS: BUSPIRONE HCL 10 MG TABLET PO SCH (21:29)
[2019-03-02] MEDS: BuPROPion XL (24 HR) 150 MG TABLET PO SCH (21:29)
[2019-03-02] MEDS: NORGESTIMATE ETHINYL ESTRADIOL PO SCH (21:29)
[2019-03-03] MEDS: Acetaminophen 325 MG TABLET PO PRN ×3 (00:06→19:37)
[2019-03-03] MEDS: *HR* Promethazine 25 MG/ML VIAL IVP PRN ×2 (00:08→16:28)
[2019-03-03] MEDS: Ketorolac 30 MG/ML VIAL IVP PRN ×3 (05:19→21:33)
[2019-03-03] MEDS: *HR* Heparin 5,000 UNIT/ML VIAL SQ SCH ×2 (05:20→16:27)
[2019-03-03] MEDS: 0.9 % Sodium Chloride 1,000 ML IVC SCH ×2 (05:23→19:42)
[2019-03-03] MEDS: NORGESTIMATE ETHINYL ESTRADIOL PO SCH (07:19)
[2019-03-03] MEDS: cefTRIAXone 1,000 MG in Water for inj. (sterile) 20 ML 10 ML IVP SCH (07:20)
[2019-03-03] MEDS: BuPROPion XL (24 HR) 150 MG TABLET PO SCH (07:20)
[2019-03-03 10:03] LABS: Hematocrit 31.5 % (35.3-44.9); Hemoglobin 10.1 g/dL (11.5-15.4); Mean Corpuscular HGB Conc 32.1 g/dL (31.6-35.5); Mean Corpuscular Hemoglobin 26.4 pg (28.0-33.3); Mean Corpuscular Volume 82.2 fL (83.0-100.0); Mean Platelet Volume 10.7 fL (9.4-12.4); Platelet Count 245 K/mcL (140-400); Red Blood Count 3.83 M/mcL (3.82-4.97); Red Cell Distribution Width 13.9 % (11.5-14.5)
[2019-03-03 10:36] LABS: Alanine Aminotransferase 10 Units/L (7-52); Albumin 3.2 g/dL (3.5-5.7); Albumin/Globulin Ratio 1.2 (1.1-2.2); Alkaline Phosphatase 67 Units/L (34-104); Aspartate Amino Transferase 13 Units/L (13-39); BUN/Creatinine Ratio 6 (6-26); Bilirubin,Total 0.2 mg/dL (0.3-1.0); Blood Urea Nitrogen 4 mg/dL (6-20); Calcium 8.6 mg/dL (8.6-10.3); Carbon Dioxide 18 mEq/L (23-29); Chloride 108 mEq/L (98-107); Globulin 2.7 g/dL (2.4-3.5); Glucose 148 mg/dL (70-105); Osmolality,Calculated 288 (280-300); Potassium 3.8 mEq/L (3.5-5.1); Sodium 139 mEq/L (136-145); Total Protein 5.9 g/dL (6.4-8.9); eGFR For Non-African Americans > 60 (> 60)
--- NOTE | 2019-03-03 11:35 | Internal Med Progress Note ---
Hospitalist Progress Note - Encounter Date of Encounter: 03/03/19 Time of Encounter: 09:53 - Subjective Interval History: Patient is assessed at bedside. She is a new patient to me history and previous records were provided reviewed from her chart and assessments were obtained from my outpatient history. Today she states that she is feeling better but she continues to have occasional sharp right lower abdominal and right flank pain. These are episodic in nature, and she rates those as a 5-7 when they occur. She states that she is feeling better than when she was admitted with less frequency of abdominal pelvic skin CVA pain. States nausea and vomiting has resolved and she is able to eat small amounts of food and she is able to keep fluids and without any emesis. - Exam Vitals: Temp Pulse Resp BP Pulse Ox 98.2 F 86 16 115/78 97 03/03/19 07:09 03/03/19 07:09 03/03/19 07:09 03/03/19 07:09 03/03/19 07:09 Exam: On physical exam the patient is alert and oriented 3 She is in no acute distress resting comfortably at the bedside Lungs are clear to auscultation bilaterally She is an S1-S2 no murmur gallop or rub heart sounds Abdomen is soft nontender bowel sounds 4 quads She continues to have mild right CVA tenderness with palpation - Assessment and Plan (1) Pyelonephritis Current Visit: Yes Status: Acute Assessment and Plan: Initial urine culture came back with greater than 100,000 mixed rashid recommendations for repeat C/S We will repeat the culture and sensitivity on the urine and continue with her IV antibiotics (2) Nausea and vomiting Current Visit: Yes Status: Resolved Assessment and Plan: Resolved we will continue to keep the promethazine as it needed basis (3) Dehydration Current Visit: Yes Status: Resolved Assessment and Plan: Resolved sodium is 139 and potassium is 3.8 skin turgor is rebounds well negative for any tenting (4) Sepsis Current Visit: Yes Status: Acute Assessment and Plan: likely secondary to acute pyelonephritis. Mdest sepsis criteria with HR, WBC, temperature; source of infxn pyelonephritis. UA (+) for leukocyte esterase and WBC, negative for nitrites. CT abd/pelvis from admission showed Mild right eduardo nephric soft tissue stranding concerning for pyelonephritis. Cont IV fluids and IV ceftriaxone. Blood and urine cultures pending. Appears to be improving, afebrile no further tachycardia and WBC improving. (5) DVT prophylaxis Current Visit: Yes Status: Acute Assessment and Plan: sq heparin (6) Obesity (BMI 30.0-34.9) Current Visit: No Status: Chronic Assessment and Plan: bmi 34.7, chronic. counseled. (7) GERD (gastroesophageal reflux disease) Current Visit: No Status: Chronic Assessment and Plan: con't home rx when reconciled. chronic. (8) Leukocytosis Current Visit: Yes Status: Acute Assessment and Plan: White count 15.4 on admission, likely secondary to pyelonephritis. (9) Tachycardia Current Visit: Yes Status: Resolved Assessment and Plan: Resolved pulse is 82 most likely was related to febrile state pain and pyelonephritis sepsis on admission (10) Mood disorder Current Visit: No Status: Chronic Assessment and Plan: Pt reports anxiety, depression, PTSD and borderine personality disorder. Will continue home rx when reconciled. - Summary of Assessment and Plan Summary of Assessment and Plan: Mrs. Haji is a 23-year-old white female who was admitted for sepsis p yelonephritis nausea vomiting. She continues on IV antibiotic and her status continues to improve with treatment. Nausea vomiting has resolved tachycardia has resolved. She currently is able to maintain fluids as well as small amounts of fluid without any vomiting. Right CVA pain and right lower abdominal pain is currently improving with antibiotic treatment. We will continue with IV antibiotics increasing fluids and maintaining homeostasis will continue with home meds for GERD. We will monitor closely have repeated the urine culture and sensitivity as the initial one was a poor specimen with greater than 100,000 of mixed gram-positive rashid. - Time Spent with Patient Total time spent is greater than 50% in coordination of care (as documented) at patient's floor/unit and/or counseling patient: less than 15 minutes Plan of Care Discussed with: patient Internal Medicine: Result - Labs CBC & Chem 7: 03/03/19 09:37 03/03/19 09:37 Labs: Short CBC 03/02/19 Range/Units 09:30 WBC 12.2 H (4.3-11.1) K/mcL Hgb 10.6 L D (11.5-15.4) g/dL Hct 33.0 L (35.3-44.9) % Plt Count 257 (140-400) K/mcL BMP 03/02/19 09:30 Sodium 137 Potassium 3.4 L Chloride 108 H Carbon Dioxide 22 L BUN 6 Creatinine 0.58 L Glucose 107 H Calcium 8.2 L - Impressions Impressions Abdomen/Pelvis CT 03/01/19 17:18 IMPRESSION: Mild right perinephric soft tissue stranding. No renal or ureteral calculi. Findings may be related to pyelonephritis in the correct clinical setting. Recommend correlation with urinalysis. D/ / 03/01/2019 18:10:45 Erica Cloud MD / yary Interpreting Provider: Erica Cloud MD Consult Discharge Plan - Plan Referrals: Imelda Mathis CNP [Primary Care Provider] - (2) Nausea and vomiting Qualifiers: Vomiting type: unspecified Vomiting Intractability: unspecified Qualified Code(s): R11.2 - Nausea with vomiting, unspecified (4) Sepsis Qualifiers: Sepsis type: sepsis due to unspecified organism Qualified Code(s): A41.9 - Sepsis, unspecified organism (7) GERD (gastroesophageal reflux disease) Qualifiers: Esophagitis presence: without esophagitis Qualified Code(s): K21.9 - Gastro-esophageal reflux disease without esophagitis (8) Leukocytosis Qualifiers: Leukocytosis type: unspecified Qualified Code(s): D72.829 - Elevated white blood cell count, unspecified
[2019-03-03] MEDS: BUSPIRONE HCL 10 MG TABLET PO SCH (21:31)
[2019-03-04] MEDS: Ketorolac 30 MG/ML VIAL IVP PRN ×2 (04:09→10:40)
[2019-03-04] MEDS: *HR* Promethazine 25 MG/ML VIAL IVP PRN ×2 (04:09→10:40)
[2019-03-04 06:01] LABS: Hematocrit 32.9 % (35.3-44.9); Hemoglobin 10.7 g/dL (11.5-15.4); Mean Corpuscular HGB Conc 32.5 g/dL (31.6-35.5); Mean Corpuscular Volume 79.9 fL (83.0-100.0); Mean Platelet Volume 10.2 fL (9.4-12.4); Platelet Count 299 K/mcL (140-400); Red Blood Count 4.12 M/mcL (3.82-4.97); Red Cell Distribution Width 13.8 % (11.5-14.5)
[2019-03-04] MEDS: *HR* Heparin 5,000 UNIT/ML VIAL SQ SCH (06:24)
[2019-03-04 06:36] LABS: Alanine Aminotransferase 16 Units/L (7-52); Albumin 3.3 g/dL (3.5-5.7); Albumin/Globulin Ratio 1.1 (1.1-2.2); Alkaline Phosphatase 75 Units/L (34-104); Aspartate Amino Transferase 20 Units/L (13-39); BUN/Creatinine Ratio 8 (6-26); Bilirubin,Total 0.2 mg/dL (0.3-1.0); Blood Urea Nitrogen 4 mg/dL (6-20); Calcium 8.9 mg/dL (8.6-10.3); Carbon Dioxide 21 mEq/L (23-29); Chloride 108 mEq/L (98-107); Globulin 3.1 g/dL (2.4-3.5); Glucose 101 mg/dL (70-105); Osmolality,Calculated 289 (280-300); Potassium 3.6 mEq/L (3.5-5.1); Sodium 141 mEq/L (136-145); Total Protein 6.4 g/dL (6.4-8.9); eGFR For Non-African Americans > 60 (> 60)
[2019-03-04] MEDS: BuPROPion XL (24 HR) 150 MG TABLET PO SCH (08:59)
[2019-03-04] MEDS: cefTRIAXone 1,000 MG in Water for inj. (sterile) 20 ML 10 ML IVP SCH (08:59)
[2019-03-04] MEDS: Acetaminophen 325 MG TABLET PO PRN (08:59)
[2019-03-04] MEDS: 0.9 % Sodium Chloride 1,000 ML IVC SCH (09:00)
[2019-03-04 11:26] VITALS: BP 114/81
--- NOTE | 2019-03-04 12:15 | Discharge Summary ---
Orders not resulted at time of discharge: Pending orders 03/01/19 23:35 Culture,Blood [BC] Stat 03/03/19 20:00 Culture,Urine [RM] Routine 03/05/19 04:00 CMP [Comprehensive Metabolic Panel] AM 0400 Complete Blood Count w/o Diff [HEME] AM 0400 03/06/19 04:00 CMP [Comprehensive Metabolic Panel] AM 0400 Complete Blood Count w/o Diff [HEME] AM 0400 03/07/19 04:00 CMP [Comprehensive Metabolic Panel] AM 0400 Complete Blood Count w/o Diff [HEME] AM 0400 Date of Encounter: 03/04/19 Time of Encounter: 12:10 - Discharge Diagnosis (1) Sepsis Priority: Primary Status: Resolved Qualifiers: Sepsis type: sepsis due to unspecified organism Qualified Code(s): A41.9 - Sepsis, unspecified organism (2) Pyelonephritis Priority: Primary Status: Acute (3) Nausea and vomiting Priority: Secondary Status: Resolved Qualifiers: Vomiting type: unspecified Vomiting Intractability: unspecified Qualified Code(s): R11.2 - Nausea with vomiting, unspecified (4) Dehydration Priority: Secondary Status: Resolved (5) Obesity (BMI 30.0-34.9) Priority: Secondary Status: Chronic (6) GERD (gastroesophageal reflux disease) Priority: Secondary Status: Chronic Qualifiers: Esophagitis presence: without esophagitis Qualified Code(s): K21.9 - Gastro-esophageal reflux disease without esophagitis (7) Mood disorder Priority: Secondary Status: Chronic Hospital course: Ms. Mcginnis is a 23 year old female who presented with dysuria and flank pain. She was found to be septic secondary to pyelonephritis. She was started on IV antibiotics with ceftriaxone. Urine culture was obtained that was positive for pansensitive Escherichia coli. She did symptomatically with Toradol and Phenergan and she gradually improved. On the day of discharge patient felt much better. She will be discharged home with Phenergan and Toradol as needed for symptomatic relief and Levaquin to complete a 7 day course of antibiotics. Patient will be discharged home in stable condition. Discharge discussed with: patient - Time Spent with Patient Total time spent providing and/or coordinating discharge services: Time spent: Greater than 30 minutes (35 minutes) - Discharge Medications Prescriptions: New levoFLOXacin [Levaquin] 750 mg PO DAILY #3 tablet Promethazine [Phenergan] 25 mg PO Q6HR PRN #20 tablet PRN Reason: Nausea And Vomiting Ketorolac [Toradol] 10 mg PO Q6HR PRN #16 tablet PRN Reason: Pain Continued Spironolactone 50 mg PO DAILY Ibuprofen [Ibu] 800 mg PO TID PRN PRN Reason: Pain Bupropion HCl [Wellbutrin Xl] 300 mg PO DAILY Omeprazole [PriLOSEC] 20 mg PO DAILY PRN PRN Reason: GERD Buspirone HCl [Buspar] 10 mg PO HS Propranolol [Inderal] 10 mg PO BID PRN PRN Reason: Anxiety/PANIC Norgestimate-Ethinyl Estradiol [[place] 28 Tablet] 1 tab PO DAILY Ondansetron HCl 4 mg PO Q6H PRN PRN Reason: NAUSEA/VOMITING SUMAtriptan succinate [Imitrex] 25 mg PO AD PRN PRN Reason: Migraine Headache Acetaminophen [Tylenol] 325 - 650 mg PO TID PRN PRN Reason: Pain Naproxen Sodium [Aleve] 220 mg PO DAILY PRN PRN Reason: Pain Discontinued Nitrofurantoin Monohyd/M-Cryst [Macrobid 100 mg Capsule] 100 mg PO Q12H Home Medications: Bupropion HCl [Wellbutrin Xl] 300 mg PO DAILY 03/01/19 [History] Buspirone HCl [Buspar] 10 mg PO HS 03/01/19 [History] Ibuprofen [Ibu] 800 mg PO TID PRN 03/01/19 [History] Norgestimate-Ethinyl Estradiol [[place] 28 Tablet] 1 tab PO DAILY 03/01/19 [History] Omeprazole [PriLOSEC] 20 mg PO DAILY PRN 03/01/19 [History] Propranolol [Inderal] 10 mg PO BID PRN 03/01/19 [History] Spironolactone 50 mg PO DAILY 03/01/19 [History] Acetaminophen [Tylenol] 325 - 650 mg PO TID PRN 03/03/19 [History] Naproxen Sodium [Aleve] 220 mg PO DAILY PRN 03/03/19 [History] Ondansetron HCl 4 mg PO Q6H PRN 03/03/19 [History] SUMAtriptan succinate [Imitrex] 25 mg PO AD PRN 03/03/19 [History] Ketorolac [Toradol] 10 mg PO Q6HR PRN #16 tablet 03/04/19 [Rx] Promethazine [Phenergan] 25 mg PO Q6HR PRN #20 tablet 03/04/19 [Rx] levoFLOXacin [Levaquin] 750 mg PO DAILY #3 tablet 03/04/19 [Rx] Allergies/Adverse Reactions: Allergy/AdvReac Type Severity Reaction Status Date / Time Amoxicillin Allergy Itching Verified 03/03/19 17:06 Dilating eye drops AdvReac "FULL BODY Uncoded 03/03/19 17:06 RASH" Date of admission: 03/01/19 22:26 Primary care physician: Imelda Mathis CNP Discharging clinician: Stu Nixon Anticipated date of discharge: 03/04/19 - Constitutional Vitals: Temp Pulse Resp BP Pulse Ox 99.0 F 88 16 114/81 98 03/04/19 11:25 03/04/19 11:25 03/04/19 11:25 03/04/19 11:25 03/04/19 11:25 General appearance: Present: cooperative, A&O X 3, obese, answers questions appropriately Exam: . - Respiratory Respiratory exam: Present: CTAB. Absent: rales, rhonchi, wheezes - Cardiovascular Cardiovascular exam: Present: RRR. Absent: gallop, rubs, systolic murmur - GI/Abdominal GI/Abdominal exam: Present: normal bowel sounds, soft. Absent: distended, tenderness - Patient Status Disposition: Home, Self-Care Condition: Fair Functional capacity at discharge: independent ambulation Overall status at discharge: patient is progressing back to baseline - Discharge Instructions Follow Up With: Imelda Mathis CNP [Primary Care Provider] - (1 week) Additional Instructions: Please follow-up with your PCP within one week. Please take your antibiotic until completed. Please take Phenergan and Toradol as needed for nausea and vomiting and pain. Please resume your other home medications. Please return for any new or worsening symptoms. - Diet and Activity Activity: increase activity as tolerated Diet: advance to your usual diet
== END 2019-03-04 14:53 | disposition home or self-care (01) | DRG 872 ==
LOC: 2ANU 16:33 → EMEROOARM 16:33 → 2ANU 21:45 → SUATTDRO 22:26
PROVIDERS: ADMIT Family Medicine; ATTEND Internal Medicine